=== PATIENT | female | born 1965 | race Caucasian/White ===

== ENCOUNTER 2017-12-25 21:13 | Emergency (ER) | payer OTHER ==
[2017-12-25] MEDS ORDERED: Ketorolac 10 MG Tab PO ONE (21:16)
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
[2017-12-25] MEDS ORDERED: Ibuprofen 800 MG Tab ONE (21:38)
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
== END 2017-12-25 22:13 | disposition home or self-care (01) ==
LOC: MW.ED 21:13
DX: S16.1XXA Strain of muscle, fascia and tendon at neck level, initial encounter (principal); Y99.0 Civilian activity done for income or pay; Y04.8XXA Assault by other bodily force, initial encounter
CPT/HCPCS: 72040; 99284; A9270; 99283